=== PATIENT | male | born 1960 | race Caucasian/White ===

== ENCOUNTER 2018-02-21 17:16 | Emergency (ER) | payer OTHER ==
[~2018-02-21] VITALS: Ht 172.7 cm; Wt 147.4 kg
--- NOTE | 2018-02-21 17:30 | ED GENERAL ADULT ---
History of Present Illness General Chief Complaint: Lower Extremity Problems Stated Complaint: LT LEG PAIN AND SWOLLEN Source: patient Exam Limitations: no limitations Vital Signs & Intake/Output Vital Signs & Intake/Output Vital Signs Date Time Temp Pulse Resp B/P B/P Pulse O2 O2 Flow FiO2 Mean Ox Delivery Rate 02/21 1930 98.2 70 18 139/79 98 Room Air 02/21 1925 Room Air 02/21 1730 98.6 64 18 160/82 96 Room Air Allergies Coded Allergies: Penicillins (Mild, HIVES 02/21/18) Reconcile Medications Doxycycline Hyclate (Vibramycin) 100 MG CAPSULE 1 CAP PO BID CELLULITIS Triage Nurses Notes Reviewed? yes Onset: Abrupt Duration: day(s): Timing: recent history HPI: 02/21/18 57-year-old man presents to the emergency department complaining of left lower extremity swelling. He says actually that he has swelling in both legs. This has been ongoing and intermittent, however over the last several days the left leg has been more swollen and somewhat tender. He denies any fever. He does say that he was hit in the left leg by a hockey Puck approximately a week and a half ago. Past History Travel History Traveled to [place] past 21 day No Medical History Any Pertinent Medical History? see below for history Cardiovascular: hypertension, Ariella's thyroiditis, hyperlipidemia Surgical History Surgical History: S/P knee replacements Family History Hx Contributory? No Review of Systems Review of Systems Constitutional: Denies: fever. EENTM: Reports: no symptoms. Respiratory: Denies: short of breath. Cardiovascular: Denies: chest pain. GI: Denies: abdominal pain. Genitourinary: Reports: no symptoms. Musculoskeletal: Reports: see HPI. Skin: Denies: rash. Neurological/Psychological: Denies: headache. Hematologic/Endocrine: Reports: no symptoms. Immunologic/Allergic: Reports: no symptoms. Physical Exam Physical Exam General Appearance: well developed/nourished, alert, awake, anxious, mild distress Head: atraumatic, normal appearance Eyes: Bilateral: normal appearance, PERRL, EOMI. Ears, Nose, Throat: normal pharynx, normal ENT inspection Neck: normal inspection, supple, full range of motion Respiratory: normal breath sounds, chest non-tender, no respiratory distress Cardiovascular: regular rate/rhythm Peripheral Pulses: 4+ dorsalis pedis (L) Gastrointestinal: non-tender Back: normal range of motion Extremities: pedal edema Neurologic/Psych: no motor/sensory deficits, awake, alert, oriented x 3 Skin: intact, normal color, rash Core Measures ACS in differential dx? No CVA/TIA Diagnosis: No Sepsis Present: No Sepsis Focused Exam Completed? No Progress Differential Diagnoses I considered the following diagnoses in my evaluation of the patient: [Dependent edema, cellulitis, DVT, hematoma, muscle injury, necrotizing fasciitis] Plan of Care: Orders Procedure Date/time Status TSH REFLEX 02/21 1735 Complete COMPREHENSIVE METABOLIC PANEL 02/21 1735 Complete CBC WITHOUT DIFFERENTIAL 02/21 1735 Complete B-TYPE NATRIURETIC PEP (BNP) 02/21 1735 Complete Laboratory Tests 02/21/18 1800: Anion Gap 14, Estimated GFR > 60, BUN/Creatinine Ratio 22.2, Glucose 105 H, Calcium 9.3, Total Bilirubin 0.5, AST 29, ALT 40, Alkaline Phosphatase 76, Pro-B -Natriuretic Pept 39.0, Total Protein 6.6, Albumin 3.9, Globulin 2.7, Albumin/ Globulin Ratio 1.4, TSH &T3 &Free T4 Intrp 3.560, CBC w Diff NO MAN DIFF REQ, RBC 4.71, MCV 87.0, MCH 30.4, MCHC 35.0, RDW 14.3, MPV 9.1, Gran % 59.2, Lymphocytes % 23.9, Monocytes % 11.7 H, Eosinophils % 4.8, Basophils % 0.4, Absolute Granulocytes 4.2, Absolute Lymphocytes 1.7, Absolute Monocytes 0.8 H, Absolute Eosinophils 0.3, Absolute Basophils 0 X-RAY IMPRESSION: Diffuse soft tissue swelling about the calf. No acute bony abnormality. DICTATED BY: Giacomo García MD DATE/TIME DICTATED:02/21/181827 DIRECTOR INTERNATIONAL:MANOHAR DATE/TIME TRANSCRIBED:02/21/181827 CONFIDENTIAL, DO NOT COPY WITHOUT APPROPRIATE AUTHORIZATION. <Electronically signed in Other Vendor System> SIGNED BY: Giacomo García MD [id number] IMPRESSION: Normal triplex scan without evidence of deep venous thrombosis involving the lower extremity. DICTATED BY: Giacomo García MD DATE/TIME DICTATED:02/21/181915 DIRECTOR INTERNATIONAL:MANOHAR DATE/TIME TRANSCRIBED:02/21/181915 CONFIDENTIAL, DO NOT COPY WITHOUT APPROPRIATE AUTHORIZATION. <Electronically signed in Other Vendor System> SIGNED BY: Giacomo García MD [id number] Initial ED EKG: none Departure Departure Disposition: HOME OR SELF CARE Condition: Stable Clinical Impression Primary Impression: Dependent edema Secondary Impressions: Cellulitis Departure Forms: Customer Survey General Discharge Information Prescriptions: Current Visit Scripts Doxycycline Hyclate (Vibramycin) 1 CAP PO BID #[id number] CAP Comments 02/21/18 The patient's labs were unremarkable. Ultrasound was negative for DVT. He denies any fever. The swelling is to both lower extremities however he does have some erythema to the lateral aspect of his left lower leg. He did have trauma approximately 10 days ago and may have an early cellulitis. Necrotizing fasciitis was considered. He does not have severe intractable pain. His white blood cell count is normal. He is afebrile. X-ray shows no free air. He will elevate his legs take Vibramycin as directed and follow-up with his doctor on Tuesday Critical Care Note Critical Care Note Critical Care Time: non-applicable
[2018-02-21 18:16] LABS: ABSOLUTE BASOPHIL COUNT 0 /CUMM (0.0-0.2); ABSOLUTE EOSINOPHIL COUNT 0.3 /CUMM (0.0-0.7); ABSOLUTE GRANULOCYTE CT 4.2 /CUMM (1.4-6.5); ABSOLUTE LYMPH COUNT 1.7 /CUMM (1.2-3.4); ABSOLUTE MONOCYTE COUNT 0.8 /CUMM (0.10-0.60); BASOPHIL % 0.4 % (0.0-2.0); EOSINOPHIL % 4.8 % (0-5); GRANULOCYTE % 59.2 % (42.2-75.2); MEAN CORPUSCULAR HGB 30.4 PG (27.0-31.0); MEAN PLATELET VOLUME 9.1 FL (7.4-10.4); PLATELET COUNT 157 /CUMM (130-400); RBC DISTRIBUTION WIDTH 14.3 % (11.5-14.5); RED BLOOD CELL CT 4.71 /CUMM (4.70-6.10); WHITE BLOOD CELL COUNT 7.1 /CUMM (4.8-10.8)
--- NOTE | 2018-02-21 18:34 | RADIOLOGY REPORT ---
EXAMINATION: XR TIBIA AND FIBULA, LEFT CLINICAL INFORMATION: Left leg swelling COMPARISON: None TECHNIQUE: AP and lateral views of the left tibia and fibula were obtained. FINDINGS: Diffuse soft tissue swelling is seen about the calf. Underlying bony structures are essentially unremarkable with no acute fracture or dislocation seen. Degenerative changes in the knee and ankle are noted but no bony destruction seen. Calcaneal heel spurs incidentally noted. IMPRESSION: Diffuse soft tissue swelling about the calf. No acute bony abnormality.
--- NOTE | 2018-02-21 19:19 | ULTRASOUND REPORT ---
EXAMINATION: US TRIPLEX LOWER EXTREMITY, LEFT CLINICAL INFORMATION: Pain and edema COMPARISON: None TECHNIQUE: Color-flow triplex imaging with spectral analysis and compression Doppler were performed on the lower extremity. FINDINGS: Respiratory variation, normal compression and augmented flow are noted throughout the lower extremity. The visualized common femoral vein, superficial femoral vein, profunda femoral vein, popliteal vein and midcalf peroneal and posterior tibial venous segments show no evidence of deep venous thrombosis. There is no Fierro's cyst. IMPRESSION: Normal triplex scan without evidence of deep venous thrombosis involving the lower extremity.
[2018-02-21] MEDS ORDERED: VIBRAMYCIN100 MG PO (19:28)
[2018-02-21 19:30] VITALS: BP 139/79
== END 2018-02-21 19:31 ==
LOC: ERH 17:16
PROVIDERS: Emergency Medicine
DX: R60.9 Edema, unspecified (principal); L03.116 Cellulitis of left lower limb
CPT/HCPCS: 73590-LT